=== PATIENT | male | born 1970 | race Hispanic/Latino ===

== ENCOUNTER 2019-01-06 05:42 | Observation (INO) | payer MEDICARE ==
[2019-01-04 14:19] LABS: BASOPHILS % 0.4 % (0.0-1.0); EOSINOPHILS # (AUTO) 0.3 (0.0-0.4); EOSINOPHILS % 2.8 % (0.0-6.0); HEMATOCRIT 43.4 % (38.2-49.6); HEMOGLOBIN 14.4 g/dL (14.0-18.0); LYMPHOCYTES # (AUTO) 2.8 (1.0-3.2); LYMPHOCYTES % 28.6 % (18.0-39.1); MEAN CORPUSCULAR HEMOGLOBIN 29.3 pg (28-32); MEAN CORPUSCULAR HGB CONC 33.2 g/dL (31-35); MEAN CORPUSCULAR VOLUME 88.4 fL (81-99); MONOCYTES # (AUTO) 0.6 (0.2-0.8); MONOCYTES % 6.6 % (4.4-11.3); NEUTROPHILS % 61.2 % (38.7-80.0); PLATELET COUNT 230 x10e3/uL (140-360); RED BLOOD COUNT 4.91 x10e6/uL (4.3-5.7); RED CELL DISTRIBUTION WIDTH 12.7 % (11.7-14.4)
[2019-01-04 14:33] LABS: INR 0.93
--- NOTE | 2019-01-04 14:33 | Diagnostic Imaging Report ---
Chest, PA and lateral. History: Preoperative evaluation for cervical spine surgery. Comparison: None available. Discussion: The cardiomediastinal silhouette and pulmonary vasculature are within normal limits. The lungs are clear without evidence of consolidation or effusion. There are mild degenerative changes of the thoracic spine. IMPRESSION: No radiographic evidence of acute cardiopulmonary abnormality. Signed by: Rajinder Farah MD on 01/04/2019 2:30 PM
[2019-01-04 14:34] LABS: PARTIAL THROMBOPLASTIN TIME 32.6 seconds (23.8-35.5)
[2019-01-04 14:42] LABS: ANION GAP 13.3 mmol/L (8-16); BLOOD UREA NITROGEN 12 mg/dL (7-26); BUN/CREATININE RATIO 17 (6-25); CALCIUM 9.4 mg/dL (8.4-10.2); CARBON DIOXIDE 27 mmol/L (22-29); CHLORIDE 105 mmol/L (98-107); EST GLOMERULAR FILTRATION RATE > 60 ML/MIN (60-); GLUCOSE 86 mg/dL (74-118); POTASSIUM 4.3 mmol/L (3.5-5.1); SODIUM 141 mmol/L (136-145)
[2019-01-06] VITALS (7 sets, daily range): BP systolic 121–144; BP diastolic 70–93
[~2019-01-06] VITALS: Ht 172.7 cm; Wt 93.0 kg
[~2019-01-06 05:42] MED LIST: FAMOTIDINE20 MG PO; GABAPENTIN300 MG PO; LISINOPRIL10 MG PO; OMEPRAZOLE40 MG PO
--- OUTSIDE RECORDS SUMMARY | 2019-01-06 05:51 | XMS REPORT ---
Author Author [facility] Address Unknown Phone Unavailable Care Team Providers Care Economic Historian Name Role Phone TABBY JOSEPH Unavailable Unavailable Problems This patient has no known problems. Allergies, Adverse Reactions, Alerts This patient has no known allergies or adverse reactions. Medications This patient has no known medications. Encounters Start Date/Time End Date/Time Encounter Type Admission Type Attending [facility] Care Department Encounter ID 2018-05-18 10:06:00 Inpatient [facility] [id number] Results Test Description Test Time Test Comments Text Results Atomic Results Result Comments CHEST 2 VIEWS 2019-01-04 14:30:00 [facility] [address] [place] [id number] Patient Name: LIZY ROBBINS MR #: [id number] : 1970 Age/Sex: 48/M Req #: [id number] Adm Physician: Ordered by: TABBY JOSEPH MD Report #: [id number] Location: OR Room/Bed: Procedure: [id number] DX/CHEST 2 VIEWS Exam Date: 01/04/19 Exam Time: 1400 REPORT STATUS: Signed Chest, PA and lateral. History: Preoperative evaluation for cervical spine surgery. Comparison: None available. Discussion: The cardiomediastinal silhouette and pulmonary vasculature are within normal limits. The lungs are clear without evidence of consolidation or effusion. There are mild degenerative changes of the thoracic spine. IMPRESSION: No radiographic evidence of acute cardiopulmonary abnormality. Signed by: Rajinder Fernando MD on 01/04/2019 2:30 PM Dictated By: RAJINDER FERNANDO MD 1430 Transcribed By: GABRIELE on 01/04/19 1430 COPY TO: TABBY JOSEPH MD
[2019-01-06] MEDS ORDERED: CEFAZOLIN SOD 1 GM/NS 50ML 50 ML IV ONE (06:44)
[2019-01-06] MEDS ORDERED: BUPIVACAINE 0.5%/EPI 30 ML SDV INJ ONE (06:49)
[2019-01-06] MEDS ORDERED: THROMBIN FOR SOLN 5,000 UNIT VIAL ONE (06:50)
[2019-01-06] MEDS ORDERED: BACITRACIN 50,000 UNIT VIAL ONE (06:50)
[2019-01-06] MEDS ORDERED: ACETAMINOPHEN 1000 MG/100 ML 100 ML IV ONE (07:15)
[2019-01-06] MEDS ORDERED: IBUPROFEN 800MG/ 250ML 250 ML IV ONE (07:15)
[2019-01-06] MEDS ORDERED: LIDOCAINE HCL (LTA) 4 ML SOLN ONE (07:15)
[2019-01-06] MEDS ORDERED: ACETAMINOPHEN 325 MG TAB PO PRN (08:30)
[2019-01-06] MEDS ORDERED: HYDROMORPHONE 2MG/ML 2 MG/ML ML IV PRN (08:30)
[2019-01-06] MEDS ORDERED: PROMETHAZINE HCL (IM) 25 MG/ML VIAL IM PRN (08:30)
[2019-01-06] MEDS ORDERED: ZOLPIDEM TARTRATE 5 MG TAB PO PRN (08:30)
[2019-01-06] MEDS ORDERED: MORPHINE SULFATE INJ 4 MG/ML INJ 1ML IM PRN (08:30)
[2019-01-06] MEDS ORDERED: ONDANSETRON HCL INJ 2MG/ML 2ML 2 MG/ML VIAL IV PRN (08:30)
[2019-01-06] MEDS ORDERED: CEPACOL SORE THROAT LOZENGES PO PRN (08:30)
[2019-01-06] MEDS ORDERED: FENTANYL CITRATE/PF 100MCG/2 ML INJ ONE ×2 (08:52→14:29)
[2019-01-06] MEDS ORDERED: HYDROMORPHONE 2MG/ML 2 MG/ML ML ONE (09:11)
[2019-01-06] MEDS: LACTATED RINGER'S 1,000 ML IV SCH ×2 (10:15→20:54)
[2019-01-06] MEDS: GABAPENTIN 300 MG CAP PO SCH ×2 (10:15→16:10)
[2019-01-06] MEDS: FAMOTIDINE 20 MG TAB PO SCH (10:15)
[2019-01-06] MEDS: CARISOPRODOL 350 MG TAB PO PRN ×4 (10:15→23:46)
[2019-01-06] MEDS: MAGNESIUM/ALUMINUM/SIMETHICONE 30 ML UDC PO PRN ×2 (10:15→16:10)
[2019-01-06] MEDS: LISINOPRIL 20 MG TAB PO SCH (10:15)
[2019-01-06] MEDS: PANTOPRAZOLE SOD 40 MG TABEC PO SCH (10:15)
[2019-01-06] MEDS: OXYCODONE/ACETAMINOPHEN 5-325 1 EACH TABLET PO PRN ×4 (10:15→23:46)
--- NOTE | 2019-01-06 11:25 | Operative Report ---
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 PROCEDURES: 1. C3-C4 anterior cervical diskectomy and microsurgical osteophyte resection and allograft fusion, 77735. 2. Preparation of MTF corticocancellous allograft, 29937. 3. C3-C4 anterior cervical plating with Synthes ZPN plate, 87617. ANESTHESIA: General. INDICATIONS: The patient is a 48-year-old man, who presents with C3-C4 disk herniation and spondylosis with cord compression and a cervical myelopathy syndrome. He was taken surgery for C3-C4 ACDF. PROCEDURE IN DETAIL: After induction of anesthesia, the patient was placed on the operating table in supine position. The right side of neck was prepped and draped in sterile fashion. The fluoroscopic C-arm was positioned in cross-table lateral orientation. A transverse incision was created on the right side of neck superimposed on the C3-C4 disk space as determined by fluoroscopy. The platysma was divided in line with the incision. A subplatysmal dissection was carried out and avascular plane of dissection was developed medial to the sternocleidomastoid muscle and was followed medial to the carotid sheath to the anterior border of cervical spine. The deep cervical fascia was opened. The esophagus was retracted to the left. The attachments of longus colli muscles to the anterolateral aspects of vertebral bodies of C3 and C4 were divided. The anterior longitudinal ligament was resected. [place] posts were inserted into C3 and C4. The [place] distractor was used to distract the disk space. The anterior annulus of this was incised with a #11 blade. The contents of the C3-C4 disk were thoroughly evacuated with curettes and pituitary rongeurs. The posterior osteophytes were meticulously drilled with a 2 mm cutting bur until they were completely removed. The posterior annulus of the disk, herniated disk material, and the posterior longitudinal ligament were resected layer by layer until the dura was fully exposed and decompressed. The medial aspects of the uncinate processes were resected bilaterally to further expose any compressed origins of the corresponding nerve roots. After satisfactory decompression had been achieved, the endplates were prepared for fusion. The disk space was sized and found to be 8 mm in height. A piece of MTF corticocancellous allograft measuring 8 mm in thickness was selected and loaded onto a corresponding Synthes ZPN plate. The construct was inserted into the C3-C4 disk space under distraction and fluoroscopic guidance. The distraction was released and distraction posts were removed. The plate was screwed to the endplates of C3 and C4 with two pairs of 14 mm screws. All screws were locked and excellent construct was obtained. The wound was copiously irrigated with bacitracin solution. Meticulous hemostasis was secured. Retraction was removed. The platysma was closed with 3-0 Vicryl sutures. The skin was closed with 4-0 Monocryl sutures in subcuticular fashion. Steri-Strips and dressing were applied. The patient was awakened, extubated, and taken to postanesthesia care unit in stable condition. No intraoperative complications were encountered. Estimated blood loss was 10 mL. Quinten Jonas MD PP/ACE /[id number]
[2019-01-06] MEDS ORDERED: MIDAZOLAM HCL 2 MG/2 ML VIAL ONE (14:29)
[2019-01-06] MEDS ORDERED: KETAMINE HCL INJ 50 MG/ML 10 ML VIAL ONE (14:29)
[2019-01-06] MEDS: CEFAZOLIN SOD 1 GM/NS 50ML 50 ML IV SCH ×2 (16:10→23:03)
[2019-01-06] MEDS ORDERED: LIDOCAINE HCL 2% JELLY 5 ML TUBE ONE (18:09)
[2019-01-06] MEDS ORDERED: DEXAMETHASONE SOD PHOS INJ 4 MG/ML VIAL ONE (18:09)
[2019-01-06] MEDS ORDERED: SEVOFLURANE INHAL SOLN 250 ML PEN BTL ONE (18:09)
[2019-01-06] MEDS ORDERED: PROPOFOL IV EMULSION 10 MG/ML 20 ML VIAL ONE (18:09)
[2019-01-06] MEDS ORDERED: ONDANSETRON HCL INJ 2MG/ML 2ML 2 MG/ML VIAL ONE (18:09)
[2019-01-06] MEDS ORDERED: LIDOCAINE HCL 2% LOCAL INJ 5 ML SDV VIAL INJ ONE (18:09)
--- NOTE | 2019-01-06 19:16 | NUR ---
Received bedside report from day nurse. Patient resting in bed, alert and oriented, no s/s of distress or c/o pain at this time. All safety measures in place. Family at bedside. Will continue to monitor.
--- NOTE | 2019-01-06 19:40 | NUR ---
Patient currently off unit for CT. Addendum: 01/06/19 at 1946 by Lorene Hicks RN Please ignore; entered in error.
[2019-01-06] MEDS ORDERED: NORCO 7.5-3251 EACH PO ×3 (22:13→22:43)
[2019-01-07] VITALS: BP 145/77
[2019-01-07 04:00] VITALS: BP 141/77
[2019-01-07] MEDS: CARISOPRODOL 350 MG TAB PO PRN (04:16)
[2019-01-07] MEDS: OXYCODONE/ACETAMINOPHEN 5-325 1 EACH TABLET PO PRN (04:16)
--- NOTE | 2019-01-07 07:15 | NUR ---
Patient leaving unit for C-spine. Ambulating with transporter. In stable condition, no s/s of distress or c/o pain at this time.
[2019-01-07] MEDS: CEFAZOLIN SOD 1 GM/NS 50ML 50 ML IV SCH (07:30)
--- NOTE | 2019-01-07 07:30 | NUR ---
received pt resting family at side
[2019-01-07 08:00] VITALS: BP 137/80
[2019-01-07 08:16] VITALS: BP 137/80
--- NOTE | 2019-01-07 08:22 | NUR ---
Report given to charge nurse. Patient resting in bed, no s/s of distress or c/o pain at this time. All safety measures in place. Family at bedside.
--- NOTE | 2019-01-07 08:34 | Diagnostic Imaging Report ---
Exam: Cervical spine 2 views History: Postsurgical Comparison: None. Findings: See impression Impression: The cervical spine is visualized from the skull base to the top of C7 on the lateral radiograph. Postsurgical changes at C3-C4 with anterior fusion and disc spacer placement. Hardware is appropriately positioned without evidence of failure. No displaced fractures. Intervertebral disc spaces are well-maintained. Atlantoaxial interval is within normal limits. Mild prevertebral soft tissue thickening in keeping with recent surgery. Signed by: Dr. Suman Bearden M.D. on 01/07/2019 8:30 AM
--- NOTE | 2019-01-07 08:40 | NUR ---
pt c\o pain 09/25. medicated as ordered.
[2019-01-07] MEDS: GABAPENTIN 300 MG CAP PO SCH (09:00)
[2019-01-07] MEDS: PANTOPRAZOLE SOD 40 MG TABEC PO SCH (09:00)
[2019-01-07] MEDS: LISINOPRIL 20 MG TAB PO SCH (09:00)
[2019-01-07] MEDS: FAMOTIDINE 20 MG TAB PO SCH (09:00)
--- NOTE | 2019-01-07 09:15 | NUR ---
pain 4/10 on pain scale at this time. pt to be discharged this am
[2019-01-07] MEDS ORDERED: NORCO 7.5-3251 EACH PO (09:27)
--- NOTE | 2019-01-07 09:55 | NUR ---
iv removed earlier. discharge instructions along with prescription given to pt.
--- NOTE | 2019-01-07 10:02 | NUR ---
pt accompanied out by staff. family at side.
== END 2019-01-07 10:02 | disposition home or self-care (01) ==
LOC: OR 05:42 → PACU V 09:22 → MED/SURG 09:47
PROVIDERS: ADMIT Neurological Surgery; ATTEND Neurological Surgery
DX: M50.01 Cervical disc disorder with myelopathy, high cervical region (principal); I10 Essential (primary) hypertension; K21.9 Gastro-esophageal reflux disease without esophagitis; R12 Heartburn; Z90.3 Acquired absence of stomach [part of]; Z98.890 Other specified postprocedural states; G89.29 Other chronic pain; Z01.810 Encounter for preprocedural cardiovascular examination; Z01.812 Encounter for preprocedural laboratory examination; Z01.811 Encounter for preprocedural respiratory examination
CPT/HCPCS: 20931; 22551; 22845; 36415; 71046; 72040; 77003; 80048; 85025; 85610; 85730; 86850; 86900; 88304; 93005; G0378 ×2; J0131; J0690; J1100; J1170; J2001 ×2; J2250; J2405; J2704; J3010; J7121; S0164 ×2

== ENCOUNTER 2022-01-20 00:44 | Emergency (ER) | payer MEDICARE ==
[~2022-01-20] VITALS: Ht 172.7 cm; Wt 99.8 kg
[~2022-01-20 00:44] MED LIST changes: +NORCO 7.5-3251 EACH PO
[2022-01-20] MEDS ORDERED: BENZONATATE 100 MG CAP PO SCH (01:30)
[2022-01-20] MEDS ORDERED: AZITHROMYCIN250 MG PO (02:21)
[2022-01-20] MEDS ORDERED: MEDROL4 M2 PO (02:21)
[2022-01-20] MEDS ORDERED: BENZONATATE200 MG PO (02:42)
[2022-01-20 02:50] VITALS: BP 142/82
== END 2022-01-20 02:52 | disposition home or self-care (01) ==
LOC: ER 00:50
DX: R05.9 Cough, unspecified (principal); J40 Bronchitis, not specified as acute or chronic; I10 Essential (primary) hypertension; I48.91 Unspecified atrial fibrillation; K21.9 Gastro-esophageal reflux disease without esophagitis; Z20.822 Contact with and (suspected) exposure to COVID-19
CPT/HCPCS: 71046; 99283; U0002

== ENCOUNTER 2024-04-20 19:04 | Emergency (ER) | payer MEDICARE ==
[~2024-04-20] VITALS: Ht 172.7 cm; Wt 97.5 kg
[~2024-04-20 19:04] MED LIST changes: +AZITHROMYCIN250 MG PO; +BENZONATATE200 MG PO; +MEDROL4 M2 PO
[2024-04-20 19:27] VITALS: PULSE 65; RESP 18; TEMP 98.8
[2024-04-20] MEDS ORDERED: ORPHENADRINE C100 MG PO (20:14)
[2024-04-20] MEDS: ORPHENADRINE CITRATE 30 MG/ML VIAL IM ONE (20:43)
[2024-04-20] MEDS: KETOROLAC TROMETHAMINE 60 MG/2 ML VIAL IM ONE (20:43)
[2024-04-20 21:50] VITALS: BP 134/83; PULSE 71; RESP 18; TEMP 98.2; O2SAT 99
== END 2024-04-20 21:55 | disposition home or self-care (01) ==
LOC: ER 20:10
DX: M62.830 Muscle spasm of back (principal); M54.2 Cervicalgia; M25.511 Pain in right shoulder; I10 Essential (primary) hypertension; I48.91 Unspecified atrial fibrillation; K21.9 Gastro-esophageal reflux disease without esophagitis
CPT/HCPCS: 99283; J1885; J2360